=== PATIENT | female | born 1985 | race Caucasian/White ===

== ENCOUNTER 2017-08-16 09:54 | Outpatient (CLI) | payer OTHER ==
--- NOTE | 2017-08-16 18:49 | RAD ---
LEFT KNEE FOUR VIEWS: Date: 08-16-17 FINDINGS: No fracture or dislocation is seen. The joint space appears normal and the articular surfaces are smo oth. At most, there might be a small joint effusion. IMPRESSION: No acute bony finding. POS: [facility]
--- NOTE | 2017-08-16 19:53 | RAD ---
LEFT ANKLE THREE VIEWS: Date: 08-16-17 FINDINGS: There is history of prior ankle fracture about two months ago but I do not have any prior films to co mpare with. No acute fracture was visualized today. The ankle mortise appears intact and the articular surfaces a re smooth. All visible bones appeared intact. IMPRESSION: No acute bony finding. POS: [facility]
== END 2017-08-16 09:55 | disposition home or self-care (01) ==
LOC: BURRAD 09:54
PROVIDERS: ATTEND Family Medicine
DX: M25.562 Pain in left knee (principal); M25.572 Pain in left ankle and joints of left foot

== ENCOUNTER 2017-12-27 08:56 | Outpatient (CLI) | payer OTHER ==
--- NOTE | 2017-12-27 17:27 | ULT ---
ABDOMINAL ULTRASOUND: 12/27/2017 FINDINGS: Ultrasonography of the abdomen was performed. The liver is slightly generous in size at 16.3 cm in l ength, but internally it appears normal. The spleen is normal in size. The pancreas appears normal. The gallbladder contained no signs of stones or wall thickening. The common bile duct was a normal 4 mm in caliber. The right kidney was 10.5 cm long and appears normal. The left kidney is 12.5 cm long and also appea rs normal; however, its lower pole is not seen well. The aorta and inferior vena cava were unremarkable. IMPRESSION: No definite acute findings. Borderline hepatic size, which may or may not be significant. POS: [facility]
--- NOTE | 2017-12-27 17:35 | ULT ---
PELVIC ULTRASOUND WITH TRANSVAGINAL IMAGIN12/27/2017 HISTORY: Ultrasonography of the pelvis is performed for evaluation of pelvic pain. FINDINGS: The uterus is normal in appearance and measures 5.9 x 2.6 x 3.4 cm. The endometrium is a normal 4 mm thick. The right ovary is 3.1 cm long and appears normal. The left ovary is 2.9 cm long and contains a jp nant follicle that was 1.1 cm in size. Blood flow is present in both ovaries. There is no free flui d seen in the cul-de-sac. Scanning around the appendiceal area revealed no focal abnormality. IMPRESSION: Unremarkable pelvic ultrasound. POS: [facility]
== END 2017-12-27 08:57 | disposition home or self-care (01) ==
LOC: BURULT 08:56
PROVIDERS: ATTEND Physician Assistant
DX: R10.2 Pelvic and perineal pain (principal)
CPT/HCPCS: 76700; 76856